=== PATIENT | female | born 1945 | race Hispanic/Latino ===

== ENCOUNTER 2018-04-24 09:13 | Day surgery (SDC) | payer MEDICARE ==
[2018-04-20 16:21] VITALS: BMI 30.2
[2018-04-24] MEDS ORDERED: Lactated Ringer's 1,000 ML IV SCH ×2 (12:00→13:30)
[2018-04-24] MEDS ORDERED: Midazolam 2 MG/2 ML VIAL ONE (12:06)
[2018-04-24] MEDS ORDERED: Propofol 10 mg/ml Inj (20 ML) ONE ×2 (12:06→12:44)
[2018-04-24 13:49] VITALS: O2SAT 100
[2018-04-24 14:38] VITALS: BP 148/79; PULSE 77; RESP 16; TEMP 98
== END 2018-04-24 14:34 | disposition home or self-care (01) ==
LOC: ENDO 09:13
PROVIDERS: ATTEND Internal Medicine Gastroenterology
DX: K55.20 Angiodysplasia of colon without hemorrhage (principal); D12.8 Benign neoplasm of rectum; K57.30 Diverticulosis of large intestine without perforation or abscess without bleeding; K25.9 Gastric ulcer, unspecified as acute or chronic, without hemorrhage or perforation; K29.30 Chronic superficial gastritis without bleeding; K44.9 Diaphragmatic hernia without obstruction or gangrene; D50.9 Iron deficiency anemia, unspecified
CPT/HCPCS: 43239; 45384; 45385; 88305; 88342; J2001; J2250; J2704; J7040; J7120

== ENCOUNTER 2018-07-05 05:35 | Day surgery (SDC) | payer MEDICARE ==
[2018-04-20 16:21] VITALS: BMI 30.2
[2018-07-05] MEDS ORDERED: Lidocaine 2% Inj (20ml) ONE (06:57)
[2018-07-05] MEDS ORDERED: Iodixanol 320 MG/ML 100 ML BOTTLE IV ONE (06:58)
[2018-07-05] MEDS ORDERED: Iohexol 350mgl/ml 50 ML ONE (06:58)
[2018-07-05] MEDS ORDERED: Iodixanol 320 MG/ML 200 ML BOTTLE IV ONE (06:58)
[2018-07-05] MEDS ORDERED: Phenylephrine 10 mg/ml Inj ONE (06:59)
[2018-07-05 07:23] LABS: INR 1.05; PARTIAL THROMBOPLASTIN TIME 32.4 Seconds (26.9-38.3); PROTHROMBIN TIME 11.9 SECONDS (9.4-12.5)
[2018-07-05] MEDS ORDERED: Midazolam 2 MG/2 ML VIAL ONE ×2 (07:52→08:02)
[2018-07-05] MEDS ORDERED: Sodium Chloride 0.9% 1,000 ML IV SCH (08:30)
[2018-07-05 08:59] VITALS: TEMP 97.3
[2018-07-05 11:00] VITALS: RESP 18
[2018-07-05 12:03] VITALS: BP 126/71; PULSE 81; O2SAT 99
--- NOTE | 2018-07-05 12:29 | CARDCATH ---
PROCEDURE DATE: 07/05/2018 CARDIAC CATHETERIZATION REPORT PROCEDURES: 1. Left and right coronary angiography. 2. Right and left heart catheterization. 3. Right femoral arteriography. 4. Angio-Seal deployment. HISTORY: This is a 73-year-old woman with recent abnormal stress test suggestive of pulmonary hypertension on echocardiography. The test was done and evaluation for cause of exertional dyspnea. Cardiac catheterization was advised. INDICATIONS: HEMODYNAMICS: The right heart pressures are as follows. The RA mean pressure was 2. The RV pressure was 26/2. The PA pressure was 28/4. The mean pressure 15. The pulmonary capillary wedge pressure was 4. The cardiac output by thermodilution method was 3.9 L/minute with a cardiac index of 2.3 L/min/m2. CORONARY ANATOMY: 1. The left main stem was normal. 2. The proximal LAD artery was mildly calcified and had evidence of several 40% stenosis present in the proximal and early mid segment. The distal vessel was fairly small caliber, but had no evidence of obstructive disease. The diagonal branches were free of disease. 3. The left circumflex artery was moderate size vessel. This had no evidence of significant disease. 4. The right coronary artery was dominant and had a 30% tapering in its right proximal segment. The distal LAD and branches had no evidence of significant disease. LEFT VENTRICULOGRAPHY: A hand injection was performed in the left ventricle revealing normal wall motion and ejection fraction of 65%. There was no aortic valve gradient noted on catheter pullback. Mitral regurgitation was not assessed. RIGHT FEMORAL ARTERIORRHAPHY: The right femoral arteriogram was performed in the KIM projection revealing no evidence of significant disease. The puncture site was appropriate, closure was then performed of the femoral access site with the use of Angio-Seal device. Manual pressure was performed to achieve adequate hemostasis after removal of the venous sheath. CONCLUSION: 1. Mild coronary artery disease. 2. Normal LV systolic function. 3. Right heart pressures. RECOMMENDATION: Given the above findings, risk factor control was advised. Further workup for exertional dyspnea can be performed as an outpatient. Emmanuel Hernandez MD cc: 1. Rivera Israel MD 2. Amandeep Nettles MD [facility] # [id number] [place]
== END 2018-07-05 14:00 | disposition home or self-care (01) ==
LOC: CATH 05:35
PROVIDERS: ATTEND Internal Medicine Cardiovascular Disease
DX: I25.10 Atherosclerotic heart disease of native coronary artery without angina pectoris (principal)
CPT/HCPCS: 36415; 85610; 85730; 86850; 86900; 93460; 99152; 99153; C1769 ×2; C1894; C2629; J1644; J2250; J3010; J7030; Q9966

== ENCOUNTER 2018-07-12 12:03 | Outpatient (CLI) | payer MEDICARE | END 2018-07-12 12:04 | disposition home or self-care (01) | LOC: LAB 12:03 | DX: D50.9 Iron deficiency anemia, unspecified (principal) ==

== ENCOUNTER 2018-08-11 07:39 | Outpatient (CLI) | payer MEDICARE | END 2018-08-11 07:40 | disposition home or self-care (01) | LOC: RAD 07:39 ==

== ENCOUNTER 2018-08-17 13:04 | Outpatient (CLI) | payer MEDICARE | END 2018-08-17 13:05 | disposition home or self-care (01) | LOC: RAD 13:05 ==

== ENCOUNTER 2018-10-16 08:39 | Outpatient (CLI) | payer MEDICARE | END 2018-10-16 08:40 | disposition home or self-care (01) | LOC: RAD 08:39 ==